=== PATIENT | male | born 1985 | race Caucasian/White ===

== ENCOUNTER 2021-09-12 09:30 | Outpatient (RCR) | payer OTHER, SELFPAY ==
--- NOTE | 2021-07-16 15:18 | PTOPEVAL ---
Thank you for referring Christiano Mckeon to [facility].? The patient is scheduled to be seen for therapy? 2 x/week for 5 weeks. Please review, sign, date and return this plan of care HARDIK. I agree with and certify that the following plan of care is medically necessary. 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 Subjective Information He denies any injury. Reports Query Text:As Reported By Patient/ the pain is at his posterior Family sacral/buttock region with symptoms into his symptoms. He has been receiving steriod injections with decreased relief of his symptoms. Does not perform a fitness or stretching program. He does occasional ankle stretches on left due to previous injury. He is limited with prolonged standing and sitting for > 1hr. He is able to walk long distance, but will have increased pain. Denies pain at night. Pain Assessment Lower Back Reported Pain Level 1 Pain Description Tightness Pain Frequency Chronic Lowest Pain Intensity 0 Greatest Pain Intensity 6 Pain Aggravating Factors Prolonged Position,Sitting, Walking,Weight Bearing/ Standing Right Hip(s) Reported Pain Level 4 Pain Description Tightness Pain Frequency Chronic Lowest Pain Intensity 0 Greatest Pain Intensity 7 Pain Aggravating Factors Prolonged Position,Sitting, Walking,Weight Bearing/ Standing Cervical and Lumbar ROM Lumbar ROM Lumbar Flexion Active Mid Capps:Hands to: Lumbar Comments pain with trunk motion flex
--- NOTE | 2021-08-13 12:31 | PCPTNOTE ---
Patient called & cancelled scheduled appointment this date due to not feeling well.
--- NOTE | 2021-08-21 13:25 | PTOPEVAL ---
Physical Therapy Progress Note Thank you for referring Christiano Mckeon to [facility].?He has attended 10 therapy visits to address his initial limitations. Nimco is progressing towards his therapy goals with improved function, improved pain, and improved joint restrictions. The patient is scheduled to be seen for therapy?2 x/week for 3 weeks. Please review, sign, date and return this plan of care HARDIK. I agree with and certify that the following plan of care is medically necessary. 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 Subjective Information He performs some of his Query Text:As Reported By Patient/ exercises daily, but not all Family of them each day. He purchased a standing desk for home which has improved his pain and symptoms. Cont to have pain is at his right posterior buttock region/lateral hip region. Denies radiating symptoms into right leg, but isolation into hip/buttock region. He remains limited with prolonged standing and sitting for > 1hr. He is able to walk long distances and perform lifting task. Pain Assessment Lower Back Reported Pain Level 3 Pain Description Tightness Pain Frequency Chronic Lowest Pain Intensity 1 Greatest Pain Intensity 3 Right Hip(s) Reported Pain Level 4 Pain Description Tightness Pain Frequency Chronic Lowest Pain Intensity 3 Greatest Pain Intensity 5 Cervical and Lumbar ROM Lumbar ROM Lumbar Flexion Active Mid Capps:Hands to: Lateral Flexion lateral knee joint line:Active Hands to: Lumbar Comments pain with trunk motion ext i 75% trunk rotation, no pain during ext improve symmetry with motion and flex trunk not shifts noted Lower Extremity Muscle Strength Testing General Lower Extremity Strength Gross Lower Extremity Strength right hip ext: 4/5, left: 4+/5 sharla hip abduction: 3/5 Muscle Length Testing Muscle Length Testing Two-Joint Hip Flexor Shortened Muscles Short (R) Iliopsoas,
--- NOTE | 2021-09-12 11:39 | PTOPEVAL ---
Physical therapy progress note/discharge note Thank you for referring Christiano Mckeon to [facility].?Christiano has attended 16 therapy visits to address his chronic back and hip pain. He has improved with his function, pain, muscle strength and joint motion. He has been provided a HEP and demonstrates understanding. His goals have been partially achieved. Will plan to DC skilled therapy services at this time. Please review, sign, date and return this discharge summary HARDIK. I agree with and certify that the following plan of care is medically necessary. 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 Subjective Information He performs exercises daily Query Text:As Reported By Patient/ throughout the day. Family He purchased a standing desk for home which has improved his pain and symptoms. Cont to have pain is at his right posterior buttock region/ lateral hip pregion. Prolonged sitting incresaes the pain. He is using his standing desk with improved symptoms. Pain Assessment Lower Back Reported Pain Level 1 Pain Description Pulling,Throbbing Pain Frequency Chronic Lowest Pain Intensity 0 Greatest Pain Intensity 4 Right Hip(s) Reported Pain Level 3 Pain Description Soreness,Throbbing Pain Frequency Chronic Lowest Pain Intensity 1 Greatest Pain Intensity 4 Cervical and Lumbar ROM Lumbar ROM Lumbar Flexion Active Mid Capps:Hands to: Lateral Flexion lateral knee joint line:Active Hands to: Lumbar Comments 100% trunk ext, no pain 75% trunk rotation, with muscle tightness pulling tightness with trunk flex Lower Extremity Muscle Strength Testing General Lower Extremity Strength Reason Not Measured WNL/Left,WNL/Right Gross Lower Extremity Strength sharla hip ext: 4/5 sharla hip abduction: 3/5 Muscle Length Testing Muscle Length Testing Two-Joint Hip Flexor Shortened Muscles Short (R) Iliopsoas,Short (L) Iliopsoas,Short (R) Rectus Femoris,Short (L) Rectus Femoris,Short (R) Ilial Tib
== END 2021-09-13 10:20 | disposition home or self-care (01) ==
LOC: ANHPT 09:30
DX: M99.03 Segmental and somatic dysfunction of lumbar region (principal)
CPT/HCPCS: 97110; 97140; 97162

== ENCOUNTER 2024-06-19 19:46 | Emergency (ER) | payer SELFPAY ==
[2024-06-19 19:53] VITALS: BP 139/98; PULSE 95; RESP 16; TEMP 36.3; O2SAT 99
--- NOTE | 2024-06-20 09:49 | ED_ITS ---
HPI - Dental/Oral General Chief complaint: Dental/Oral Stated complaint: Tooth Pain Time Seen by Provider: 06/19/24 19:54 Source: patient and RN notes reviewed Mode of arrival: ambulatory Limitations: no limitations History of Present Illness HPI Narrative: Patient presents today complaining of tooth pain. He saw his dentist 2 days ago and they placed him on a course of Augmentin and told him he needs to schedule a root canal. Since that time his pain has worsened. He has been taking Tylenol, ibuprofen, hand and has also tried Orajel without relief. He is wondering if he needs a different antibiotic. He has tried to call the emergency line at his dentist's office but has not received a call back. Denies fever, shortness of breath, difficulty swallowing. Related Data Home Medications Medication Instructions Recorded Confirmed amoxicillin 875 mg-potassium tablet 06/19/24 clavulanate 125 mg tablet atorvastatin 20 mg tablet 20 mg PO DAILY 06/19/24 06/19/24 bupropion HCl 150 mg tablet,12 hr 150 mg PO BID 06/19/24 06/19/24 sustained-release buspirone 5 mg tablet 5 mg PO TID 06/19/24 06/19/24 butalbital 50 mg-acetaminophen 325 1 cap PO DIRECTED 06/19/24 06/19/24 mg-caffeine 40 mg-codeine 30 mg cap dapagliflozin propanediol 10 mg 10 mg PO DAILY 06/19/24 06/19/24 tablet (Farxiga) losartan 50 mg tablet 50 mg PO DAILY 06/19/24 06/19/24 metformin 1,000 mg tablet 1,000 mg PO BID 06/19/24 06/19/24 sildenafil 50 mg tablet 50 mg PO DIRECTED 06/19/24 06/19/24 Allergies Allergy/AdvReac Type Severity Reaction Status Date / Time doxycycline AdvReac Severe Nausea and Verified 12/28/18 08:18 Vomiting Review of Systems Review of Systems: CONSTITUTIONAL: Denies body aches, fever, chills, or sweats. EYES: Denies visual changes, redness, or discharge. ENT: Denies rhinorrhea, congestion, sore throat, or otalgia.+ tooth pain CARDIOVASCULAR: Denies chest pain, palpitations, or edema. RESPIRATORY: Denies cough or dyspnea. GASTROINTESTINAL: Denies abdominal pain, nausea, vomiting, or diarrhea. GENITOURINARY: Denies dysuria or hematuria. SKIN: Denies rash, itching, or wounds. MUSCULOSKELETAL: Denies back pain, joint pain, or myalgia. NEUROLOGIC: Denies headache, numbness, tingling, or weakness. PSYCH: Denies depression or anxiety. [facility] Past Medical History Medical History (Updated 06/20/24 @ 09:51 by Katya Moeller, [facility], ) Diabetes Comments At time of signature, I have reviewed and agree with nursing past medical, surgical, social and family history unless otherwise noted. Please see nursing chart for further information. There is no relevant family history pertinent to the presenting complaint Exam Narrative: GENERAL: Well-appearing, well-nourished, and in no acute distress. HEAD: Normocephalic, atraumatic. EYES: EOMI. No redness or drainage. Conjunctivae normal. ENT: Mucous membranes pink and moist. Nares clear. No rhinorrhea. Pain to tooth number 31. No facial swelling or redness noted. NECK: Normal AROM. Supple. No lymphadenopathy. CHEST: No respiratory distress. EXTREMITIES: Normal range of motion. No edema. SKIN: Warm, dry, no rash. Capillary refill normal. Normal skin turgor. NEURO: No focal deficits. Alert and oriented x3. Gait steady. PSYCH: Normal affect. No signs of depression or anxiety. Course Course Level of Care: Express Care Visit Vital Signs Vital signs: Vital Signs Temperature 97.3 F L 06/19/24 19:53 Pulse Rate 95 06/19/24 19:53 Respiratory Rate 16 06/19/24 19:53 Blood Pressure 139/98 H 06/19/24 19:53 Pulse Oximetry 99 06/19/24 19:53 Temperature 97.3 F L 06/19/24 19:53 Pulse Rate 95 06/19/24 19:53 Respiratory Rate 16 06/19/24 19:53 Blood Pressure 139/98 H 06/19/24 19:53 Pulse Oximetry 99 06/19/24 19:53 Reviewed MDM - Dental/Oral MDM Narrative Medical decision making narrative: Recommend continuing Augmentin. Patient will call his dentist on Friday to schedule a follow-up visit. Prescription for Tylenol No. 3 sent to pharmacy for pain control. Anticipatory guidance given. Differential Diagnosis Differential diagnosis: Likely gingival abscess, dental caries, toothache and dental abscess Critical Care Time Critical Care Time Critical Care Time: No Discharge Plan Discharge Clinical Impression: Toothache Patient Disposition: Home, Self-Care Condition: Stable Instructions: Toothache (ED) Additional Instructions: Continue the Augmentin. Take the Tylenol 3 as prescribed. Follow-up with your dentist as soon as possible. Your blood pressure was elevated above 120/80 today at Urgent Care. This puts you above the threshold for follow up. Please schedule a followup visit with your personal physician as soon as possible, for further evaluation and treatment. Even blood pressure exceeding 120/80 may indicate pre-hypertension. Prescriptions: New acetaminophen-codeine 300-30 mg tablet 1 tablet PO Q8H PRN (Reason: pain) Qty: 10 0RF No Action losartan 50 mg tablet 50 mg PO DAILY buspirone 5 mg tablet 5 mg PO TID bupropion HCl 150 mg tablet sustained-release 12 hr 150 mg PO BID atorvastatin 20 mg tablet 20 mg PO DAILY sildenafil 50 mg tablet 50 mg PO DIRECTED metformin 1,000 mg tablet 1,000 mg PO BID [id number] mg capsule 1 cap PO DIRECTED amoxicillin-pot clavulanate 875-125 mg tablet dapagliflozin propanediol [Farxiga] 10 mg tablet 10 mg PO DAILY Follow-up/Referrals: PHYSICIAN,FISCAL ECONOMIST [Primary Care Provider] - Time of Disposition: 20:02
== END 2024-06-19 20:04 | disposition home or self-care (01) ==
PROVIDERS: Emergency Provider Nurse Practitioner
DX: K08.89 Other specified disorders of teeth and supporting structures (principal); E11.9 Type 2 diabetes mellitus without complications; Z79.84 Long term (current) use of oral hypoglycemic drugs
CPT/HCPCS: 99213; G0463